=== PATIENT | male | born 1970 | race Caucasian/White ===

== ENCOUNTER 2020-01-12 19:19 | Inpatient (IN) | payer BC ==
[~2020-01-12] VITALS: Ht 177.8 cm; Wt 88.6 kg
[~2020-01-12 19:19] MED LIST: CLIN150C8 PO
[2020-01-12] MEDS ORDERED: normal saline 1000ml 1,000 ML IV ONE (19:50)
[2020-01-12] MEDS ORDERED: ketorolac tromethamine 15mg/ml inj. IV ONE (19:50)
[2020-01-12] MEDS ORDERED: ondansetron/PF 4mg/2ml inj IV ONE (19:55)
[2020-01-12 20:01] LABS: BASOPHILS # (AUTO) 0.1 X10'3 (0-0.2); BASOPHILS % (AUTO) 0.4 % (0-1); EOSINOPHILS # (AUTO) 0.1 X10'3 (0-0.9); EOSINOPHILS % (AUTO) 0.9 % (0-6); HEMOGLOBIN 15.2 g/dl (14.0-17.9); LYMPHOCYTES # (AUTO) 1.5 X10'3 (1.1-4.8); MEAN CORPUSCULAR HEMOGLOBIN 30.3 PG (27.0-31.0); MEAN CORPUSCULAR HGB CONC 33.1 g/dL (33.0-36.5); MEAN CORPUSCULAR VOLUME 91.5 FL (78-98); MEAN PLATELET VOLUME 10.6 FL (7.4-10.4); MONOCYTES % (AUTO) 7.2 % (2-12); NEUTROPHILS # (AUTO) 11.1 X10'3 (1.8-7.7); NEUTROPHILS % (AUTO) 80.5 % (42-75); PLATELET COUNT 128 X10'3 (140-440); RED BLOOD COUNT 5.02 X10'6 (4.70-6.10); RED CELL DISTRIBUTION WIDTH 13.2 % (11.5-14.5); WHITE BLOOD COUNT 13.7 X10'3 (4.5-11.0)
[2020-01-12 20:01] LABS: CLARITY,URINE CLEAR (Clear); COLOR,URINE YELLOW (Yellow); GLUCOSE, URINE NEGATIVE (Neg); KETONES,URINE NEGATIVE (Neg); LEUKOCYTE ESTERASE ,URINE NEGATIVE (Neg); NITRITES, URINE NEGATIVE (Neg); OCCULT BLOOD,URINE LARGE (Neg); PH,URINE 6.5 (4.8-8.0); PROTEIN,URINE 100 mg/dl (Neg); UROBILINOGEN,URINE 0.2 E.U/dL (0.2-1.0)
[2020-01-12 20:02] LABS: UA COLLECTION TYPE CLN CATCH MIDSTREAM
[2020-01-12 20:07] LABS: ALANINE AMINOTRANSFERASE 45 U/L (12-78); ALBUMIN 4.4 G/DL (3.4-5.0); ALBUMIN/GLOBULIN RATIO 1.4 (1.1-1.5); ALKALINE PHOSPHATASE 56 IU/L (46-116); ANION GAP 10 (8-16); ASPARTATE AMINO TRANSFERASE 31 U/L (10-37); BLOOD UREA NITROGEN 23 MG/DL (7-18); BUN/CREATININE RATIO 7.5 (5.4-32.0); CALCIUM 9.7 MG/DL (8.5-10.1); CHLORIDE 106 MMOL/L (99-107); CREATININE 3.07 MG/DL (0.60-1.10); GLUCOSE 103 MG/DL (70-104); LIPASE 271 U/L (73-393); POTASSIUM 4.2 MMOL/L (3.5-5.1); SODIUM 139 MMOL/L (135-145); TOTAL CARBON DIOXIDE 22.6 MMOL/L (24-32); TOTAL PROTEIN 7.6 G/DL (6.4-8.2); eGFR 22 ML/MIN
[2020-01-12] MEDS ORDERED: normal saline 1000ML IV soln IVB ONE (20:15)
[2020-01-12 20:20] LABS: WBC,URINE 0-4 /HPF (0-4)
[2020-01-12 20:21] LABS: BACTERIA,URINE NONE SEEN /HPF (Neg); RBC,URINE 50-100 /HPF (0-2); SQUAMOUS EPITHELIAL CELL,UR FEW /LPF (FEW)
--- NOTE | 2020-01-12 20:34 | NUR ---
UP TO BR TO VOID. REPORTS PAIN DOWN TO 5 OUT OF 10 FROM 7 WHEN FIRST GIVEN TORADOL. NAUSEA IS MINIMAL. 2ND OF 2 LITERS INFUSING. PT AMBULATING WITH STEADY GAIT. STABLE VS.
[2020-01-12] MEDS ORDERED: morphine 2 MG/ML inj. syringe IV ONE ×2 (21:05→21:10)
--- NOTE | 2020-01-12 23:01 | NUR ---
CT resulted. Pt to be admitted. Provider awaiting call back from hospitalist. Pt moved from FT4 to [facility] er bed 15. Pt able to get into independantly.
[2020-01-12] MEDS ORDERED: CefTRIAXone/D5W-Rocephin 1gm 50 ML IV ONE (23:05)
[2020-01-12] MEDS ORDERED: NO HOME MEDS (23:22)
[2020-01-13] VITALS (7 sets, daily range): BP systolic 99–145; BP diastolic 55–95
[2020-01-13] MEDS ORDERED: acetaminophen 325mg tablet PO PRN (00:10)
[2020-01-13] MEDS ORDERED: magnesium 2GM in 50ml NS 50 ML IV PRN (00:10)
[2020-01-13] MEDS ORDERED: potassium CL 10mEq/100ml bag 100 ML IV PRN ×2 (00:10)
[2020-01-13] MEDS ORDERED: HYDROmorphone 1 mg/ml syringe IV PRN (00:10)
[2020-01-13] MEDS ORDERED: magnesium Cl slow-release 64mg tablet PO PRN (00:10)
[2020-01-13] MEDS ORDERED: HYDROcodone/acetaminophen 5mg/325mg tablet PO PRN (00:10)
[2020-01-13] MEDS ORDERED: potassium Cl 20 mEq SR tablet PO PRN ×2 (00:10)
[2020-01-13] MEDS ORDERED: ondansetron/PF 4mg/2ml inj IV PRN (00:10)
[2020-01-13] MEDS ORDERED: magnesium hydroxide 30ml (MOM) UD suspension PO PRN (00:10)
[2020-01-13] MEDS ORDERED: magnesium 4gm in 100ml NS 100 ML IV PRN (00:10)
[2020-01-13] MEDS ORDERED: mag hydrox/Alum hydrox/simeth 30ml oral suspension PO PRN (00:10)
[2020-01-13] MEDS ORDERED: Melatonin 3mg tablet PO STA (00:42)
--- NOTE | 2020-01-13 00:43 | NUR ---
pt requested something to help him sleep and adtl pain meds. antony smith aware and will order adtl meds.
[2020-01-13] MEDS ORDERED: diphenhydrAMINE 25mg capsule PO ONE (00:45)
[2020-01-13] MEDS ORDERED: HYDROcodone/acetaminophen 5mg/325mg tablet PO ONE (00:45)
[2020-01-13] MEDS: normal saline 1000ml 1,000 ML IV SCH ×3 (00:56→19:39)
[2020-01-13] MEDS: HYDROcodone/acetaminophen 5mg/325mg tablet PO PRN ×2 (00:57→12:41)
--- NOTE | 2020-01-13 01:10 | NUR ---
Patient in room [facility] 351. I have received report from KARIS Galindo and had the opportunity to ask questions and assume patient care.
--- NOTE | 2020-01-13 01:25 | NUR ---
Pt arrived to floor via . Walked from to bathroom without assistance. Voided and returned to bed. Skin check and assessment completed, VSS. Pt received a sleeping pill in ER and is ready to go to sleep. No pain at this time.
--- NOTE | 2020-01-13 06:18 | NUR ---
Problems reprioritized. Patient report given, questions answered & plan of care reviewed with KARIS Steward.
--- NOTE | 2020-01-13 06:29 | NUR ---
Patient in room [facility]EC[facility] 351. I have received report from Racheal Dennis RN and had the opportunity to ask questions and assume patient care.
[2020-01-13] MEDS ORDERED: morphine 2 MG/ML inj. syringe IV PRN (07:05)
--- NOTE | 2020-01-13 07:19 | NUR ---
Received report from KARIS Magdaleno from med/surg. Awaiting patient arrival to room 3022.
--- NOTE | 2020-01-13 07:23 | NUR ---
Report given to Ana DYSON at [facility]
--- NOTE | 2020-01-13 07:40 | NUR ---
Patient arrived to room 3022 via hospital bed, and patient ambulated from hospital bed to new bed in room 3022. Patient vitals are temp 97.8F, BP 135/79, HR 65, RR 12, 97% on room air, and pain 4/10 on his right flank but no chest tightness, normal saline running at 100mL/hr. Bed locked and lowered, call light in reach, frequent rounding, and nonskid socks on.
--- NOTE | 2020-01-13 07:44 | NUR ---
Patient transferred to PCU room 3022 with his belongings
[2020-01-13] MEDS: K and/or MAG REPLACEMENT MC SCH ×2 (08:00→20:00)
[2020-01-13] MEDS: docusate sod 100mg capsule PO SCH ×2 (08:48→19:39)
--- NOTE | 2020-01-13 09:52 | NUR ---
Administered normal saline, bag wouldn't scan.
--- NOTE | 2020-01-13 10:20 | NUR ---
Orders put in for Rocephin 1g IV daily to start now per Dr. Liu.
[2020-01-13] MEDS ORDERED: nitroGLYCERIN 0.4mg SUBLingual tab SL PRN (10:35)
[2020-01-13] MEDS ORDERED: aminophylline 250mg/10ml inj. IV PRN (10:35)
[2020-01-13] MEDS ORDERED: metoprolol tartrate 1mg/ml inj IV PRN (10:35)
[2020-01-13 10:46] LABS: ALBUMIN 3.2 G/DL (3.4-5.0); ANION GAP 9 (8-16); BLOOD UREA NITROGEN 24 MG/DL (7-18); BUN/CREATININE RATIO 8.7 (5.4-32.0); CALCIUM 8.2 MG/DL (8.5-10.1); CHLORIDE 110 MMOL/L (99-107); CREATININE 2.75 MG/DL (0.60-1.10); GLUCOSE 127 MG/DL (70-104); POTASSIUM 3.8 MMOL/L (3.5-5.1); SODIUM 140 MMOL/L (135-145); eGFR 25 ML/MIN
[2020-01-13] MEDS: CefTRIAXone/D5W-Rocephin 1gm 50 ML IV SCH (12:18)
--- NOTE | 2020-01-13 18:12 | NUR ---
Problems reprioritized. Patient report given, questions answered & plan of care reviewed with KARIS Salcedo. Patient stable at transfer of care.
[2020-01-14] VITALS (14 sets, daily range): BP systolic 117–144; BP diastolic 73–90
--- NOTE | 2020-01-14 01:55 | NUR ---
PAGER ID: [phone] MESSAGE: [phone] pt Grupo said that he thinks the pain he had earlier might actually be his lungs because it hurts when he breathes in. No chest imaging ordered. Please advise - thanks
[2020-01-14] MEDS ORDERED: regadenoson 0.4mg/5ml syringe IV PRN (05:30)
[2020-01-14 05:53] LABS: BASOPHILS % (AUTO) 0.3 % (0-1); EOSINOPHILS # (AUTO) 0.1 X10'3 (0-0.9); EOSINOPHILS % (AUTO) 1.7 % (0-6); HEMATOCRIT 41.3 % (42.0-52.0); HEMOGLOBIN 13.9 g/dl (14.0-17.9); MEAN CORPUSCULAR HEMOGLOBIN 30.8 PG (27.0-31.0); MEAN CORPUSCULAR HGB CONC 33.6 g/dL (33.0-36.5); MEAN CORPUSCULAR VOLUME 91.8 FL (78-98); MEAN PLATELET VOLUME 10.8 FL (7.4-10.4); MONOCYTES # (AUTO) 0.5 X10'3 (0-0.9); MONOCYTES % (AUTO) 5.9 % (2-12); NEUTROPHILS # (AUTO) 5.7 X10'3 (1.8-7.7); NEUTROPHILS % (AUTO) 68.1 % (42-75); PLATELET COUNT 115 X10'3 (140-440); RED CELL DISTRIBUTION WIDTH 12.8 % (11.5-14.5); WHITE BLOOD COUNT 8.4 X10'3 (4.5-11.0)
[2020-01-14] MEDS: normal saline 1000ml 1,000 ML IV SCH ×2 (06:10→16:10)
[2020-01-14 06:14] LABS: ALANINE AMINOTRANSFERASE 32 U/L (12-78); ALBUMIN 3.4 G/DL (3.4-5.0); ALBUMIN/GLOBULIN RATIO 1.2 (1.1-1.5); ALKALINE PHOSPHATASE 39 IU/L (46-116); ANION GAP 10 (8-16); ASPARTATE AMINO TRANSFERASE 19 U/L (10-37); BILIRUBIN,TOTAL 0.9 MG/DL (0.1-1.0); BLOOD UREA NITROGEN 24 MG/DL (7-18); BUN/CREATININE RATIO 12.8 (5.4-32.0); CALCIUM 8.5 MG/DL (8.5-10.1); CHLORIDE 109 MMOL/L (99-107); CREATININE 1.88 MG/DL (0.60-1.10); GLUCOSE 103 MG/DL (70-104); MAGNESIUM 1.9 MG/DL (1.5-2.4); POTASSIUM 4.3 MMOL/L (3.5-5.1); SODIUM 140 MMOL/L (135-145); TOTAL CARBON DIOXIDE 21.4 MMOL/L (24-32); TOTAL PROTEIN 6.2 G/DL (6.4-8.2); eGFR 38 ML/MIN
--- NOTE | 2020-01-14 06:21 | NUR ---
Patient in room PCU 3022. I have received report from KARIS Salcedo and had the opportunity to ask questions and assume patient care. Patient awake in bed and in no acute distress.
--- NOTE | 2020-01-14 06:30 | NUR ---
Problems reprioritized. Patient report given, questions answered & plan of care reviewed with KARIS Perez.
--- NOTE | 2020-01-14 07:14 | NUR ---
Administered normal saline, bag wouldn't scan.
[2020-01-14] MEDS: K and/or MAG REPLACEMENT MC SCH ×2 (08:00→19:18)
[2020-01-14] MEDS: CefTRIAXone/D5W-Rocephin 1gm 50 ML IV SCH (08:06)
[2020-01-14] MEDS: docusate sod 100mg capsule PO SCH ×2 (08:06→19:04)
--- NOTE | 2020-01-14 09:23 | NUR ---
Patient going down to nuclear medicine.
--- NOTE | 2020-01-14 11:36 | NUR ---
Patient back from nuclear medicine.
--- NOTE | 2020-01-14 11:42 | NUR ---
Paged x-ray to let them know that the patient is ready for their x-ray.
--- NOTE | 2020-01-14 11:48 | NUR ---
Patient left for x-ray.
--- NOTE | 2020-01-14 11:53 | NUR ---
Patient back from x-ray.
--- NOTE | 2020-01-14 12:47 | NUR ---
Paged Dr. Liu regarding patient's x-ray and lexiscan have resulted. PAGER ID: [phone] MESSAGE: [phone]. Dayne Lombardo. Patient's lexiscan and x-ray have resulted. Thank you. Ana DYSON x [phone]
--- NOTE | 2020-01-14 18:07 | NUR ---
Problems reprioritized. Patient report given, questions answered & plan of care reviewed with KARIS Moreira. Patient stable at transfer of care.
--- NOTE | 2020-01-14 18:21 | NUR ---
Patient in room PCU 3022. I have received report from Ana DYSON and had the opportunity to ask questions and assume patient care.
[2020-01-14] MEDS: lactobacillus rhamnosus 10,000 MMU CELLS/CAPSULE PO SCH (19:03)
--- NOTE | 2020-01-14 19:18 | NUR ---
PAGER ID: [phone] MESSAGE: Dayne Lombardo [phone]: Patient is on NS @ 100/hr. He is tolerating PO fluids. Patient is requesting to have NS DCd. -Lillie DYSON [phone]
[2020-01-15 02:00] VITALS: BP 134/68
[2020-01-15 05:40] LABS: BASOPHILS % (AUTO) 0.5 % (0-1); EOSINOPHILS # (AUTO) 0.2 X10'3 (0-0.9); EOSINOPHILS % (AUTO) 2.4 % (0-6); HEMATOCRIT 40.9 % (42.0-52.0); LYMPHOCYTES % (AUTO) 29.2 % (21-51); MEAN CORPUSCULAR HEMOGLOBIN 31.1 PG (27.0-31.0); MEAN CORPUSCULAR HGB CONC 34.2 g/dL (33.0-36.5); MEAN CORPUSCULAR VOLUME 90.9 FL (78-98); MEAN PLATELET VOLUME 11.4 FL (7.4-10.4); MONOCYTES # (AUTO) 0.4 X10'3 (0-0.9); MONOCYTES % (AUTO) 6.4 % (2-12); NEUTROPHILS # (AUTO) 4.3 X10'3 (1.8-7.7); NEUTROPHILS % (AUTO) 61.5 % (42-75); PLATELET COUNT 123 X10'3 (140-440); RED CELL DISTRIBUTION WIDTH 12.9 % (11.5-14.5)
[2020-01-15 05:51] LABS: ALANINE AMINOTRANSFERASE 30 U/L (12-78); ALBUMIN 3.4 G/DL (3.4-5.0); ALBUMIN/GLOBULIN RATIO 1.1 (1.1-1.5); ALKALINE PHOSPHATASE 40 IU/L (46-116); ANION GAP 8 (8-16); ASPARTATE AMINO TRANSFERASE 17 U/L (10-37); BILIRUBIN,TOTAL 0.9 MG/DL (0.1-1.0); BLOOD UREA NITROGEN 18 MG/DL (7-18); BUN/CREATININE RATIO 11.5 (5.4-32.0); CALCIUM 8.6 MG/DL (8.5-10.1); CHLORIDE 109 MMOL/L (99-107); CREATININE 1.56 MG/DL (0.60-1.10); GLUCOSE 115 MG/DL (70-104); MAGNESIUM 1.7 MG/DL (1.5-2.4); POTASSIUM 4.1 MMOL/L (3.5-5.1); SODIUM 142 MMOL/L (135-145); TOTAL CARBON DIOXIDE 25.1 MMOL/L (24-32); TOTAL PROTEIN 6.4 G/DL (6.4-8.2); eGFR 48 ML/MIN
--- NOTE | 2020-01-15 06:06 | NUR ---
Problems reprioritized. Patient report given, questions answered & plan of care reviewed with Ana DYSON.
--- NOTE | 2020-01-15 06:26 | NUR ---
Patient in room PCU 3022. I have received report from KARIS Moreira and had the opportunity to ask questions and assume patient care. Patient asleep in bed and in no acute distress.
[2020-01-15 06:48] LABS: LARGE PLATELETS FEW; PLATELET ESTIMATE NORMAL
[2020-01-15 07:00] VITALS: BP 133/77
[2020-01-15] MEDS: K and/or MAG REPLACEMENT MC SCH (08:00)
[2020-01-15] MEDS: docusate sod 100mg capsule PO SCH (08:00)
[2020-01-15] MEDS: CefTRIAXone/D5W-Rocephin 1gm 50 ML IV SCH (08:26)
[2020-01-15] MEDS: lactobacillus rhamnosus 10,000 MMU CELLS/CAPSULE PO SCH (08:27)
--- NOTE | 2020-01-15 10:50 | NUR ---
Patient stable for discharge per MD orders. All discharge instructions reviewed and all questions answered appropriately. Belongings collected and sent with patient. No new prescriptions were prescribed. Patient will call and make follow up appointment with his PCP when he gets home today. PIV discontinued and cannula intact. hall monitor discontinued. Patient wheeled down to lobby and left via private vehicle.
== END 2020-01-15 11:11 | disposition home or self-care (01) | DRG 640 ==
LOC: ER 19:19 → ED HOLD 01-13 00:10 → SUR 3N 01-13 01:25 → PCU 3S 01-13 07:40
PROVIDERS: ADMIT Family Medicine; ATTEND Internal Medicine
DX: E86.0 Dehydration (principal); N17.0 Acute kidney failure with tubular necrosis; N12 Tubulo-interstitial nephritis, not specified as acute or chronic; Z87.891 Personal history of nicotine dependence; Z87.442 Personal history of urinary calculi
CPT/HCPCS: 36415; 71046; 74176; 78452; 80048; 80053; 81001; 83605; 83690; 83735; 83880; 84145; 84484; 85025; 87081; 93005; 93017; 99285; A9500; G0378; J0696; J1885; J2270; J2405; J2785; J7030

== ENCOUNTER 2020-02-29 08:24 | Outpatient (CLI) | payer BC ==
[~2020-02-29 08:24] MED LIST changes: -CLIN150C8 PO; +NO HOME MEDS
[2020-02-29 08:59] LABS: BASOPHILS % (AUTO) 0.5 % (0-1); CLARITY,URINE CLEAR (Clear); COLOR,URINE YELLOW (Yellow); EOSINOPHILS # (AUTO) 0.2 X10'3 (0-0.9); EOSINOPHILS % (AUTO) 2.9 % (0-6); GLUCOSE, URINE NEGATIVE (Neg); HEMATOCRIT 46.9 % (42.0-52.0); HEMOGLOBIN 15.9 g/dl (14.0-17.9); KETONES,URINE NEGATIVE (Neg); LEUKOCYTE ESTERASE ,URINE NEGATIVE (Neg); LYMPHOCYTES # (AUTO) 1.9 X10'3 (1.1-4.8); LYMPHOCYTES % (AUTO) 27.9 % (21-51); MEAN CORPUSCULAR HEMOGLOBIN 30.9 PG (27.0-31.0); MEAN CORPUSCULAR HGB CONC 33.9 g/dL (33.0-36.5); MEAN CORPUSCULAR VOLUME 91.2 FL (78-98); MEAN PLATELET VOLUME 10.6 FL (7.4-10.4); MONOCYTES # (AUTO) 0.3 X10'3 (0-0.9); MONOCYTES % (AUTO) 5.1 % (2-12); NEUTROPHILS # (AUTO) 4.3 X10'3 (1.8-7.7); NEUTROPHILS % (AUTO) 63.6 % (42-75); NITRITES, URINE NEGATIVE (Neg); OCCULT BLOOD,URINE NEGATIVE (Neg); PH,URINE 5.5 (4.8-8.0); PLATELET COUNT 137 X10'3 (140-440); PROTEIN,URINE NEGATIVE (Neg); RED BLOOD COUNT 5.14 X10'6 (4.70-6.10); RED CELL DISTRIBUTION WIDTH 12.9 % (11.5-14.5); UROBILINOGEN,URINE 0.2 E.U/dL (0.2-1.0); WHITE BLOOD COUNT 6.7 X10'3 (4.5-11.0)
[2020-02-29 09:01] LABS: UA COLLECTION TYPE CLN CATCH MIDSTREAM
[2020-02-29 09:22] LABS: ALANINE AMINOTRANSFERASE 33 U/L (12-78); ALBUMIN 4.1 G/DL (3.4-5.0); ALBUMIN/GLOBULIN RATIO 1.2 (1.1-1.5); ALKALINE PHOSPHATASE 53 IU/L (46-116); ANION GAP 8 (8-16); ASPARTATE AMINO TRANSFERASE 20 U/L (10-37); BILIRUBIN,TOTAL 0.7 MG/DL (0.1-1.0); BLOOD UREA NITROGEN 14 MG/DL (7-18); CHLORIDE 107 MMOL/L (99-107); CHOL/HDL RATIO 5.4 (0.00-4.99); CHOLESTEROL 200 MG/DL (0-200); CREATININE 1.08 MG/DL (0.60-1.10); GLUCOSE 101 MG/DL (70-104); HDL CHOLESTEROL 37 MG/DL (35-60); LDL CHOLESTEROL 134 MG/DL (50-100); POTASSIUM 4.8 MMOL/L (3.5-5.1); SODIUM 140 MMOL/L (135-145); TOTAL CARBON DIOXIDE 25.3 MMOL/L (24-32); TOTAL PROTEIN 7.6 G/DL (6.4-8.2); TRIGLYCERIDES 108 MG/DL (20-135); eGFR 73 ML/MIN
[2020-02-29 09:35] LABS: LARGE PLATELETS FEW; PLATELET ESTIMATE DECREASED
[2020-03-01 15:43] LABS: PSA, FREE 0.52 ng/mL
== END 2020-02-29 23:59 | disposition home or self-care (01) ==
LOC: LAB 08:24
PROVIDERS: ATTEND Family Medicine
DX: R39.9 Unspecified symptoms and signs involving the genitourinary system (principal); N40.0 Benign prostatic hyperplasia without lower urinary tract symptoms; E86.0 Dehydration; Z87.39 Personal history of other diseases of the musculoskeletal system and connective tissue
CPT/HCPCS: 36415; 80053; 80061; 81003; 84153; 84154; 84439; 84443; 84550; 85008; 85025

== ENCOUNTER 2020-11-11 09:42 | Emergency (ER) | payer BC ==
[~2020-11-11] VITALS: Ht 180.3 cm; Wt 86.4 kg
[2020-11-11] MEDS ORDERED: normal saline 1000ML IV soln IVB ONE (09:50)
[2020-11-11] MEDS ORDERED: ondansetron/PF 4mg/2ml inj IV ONE (09:50)
[2020-11-11] MEDS ORDERED: ketorolac trometh. 30mg/ml inj. IV ONE (09:50)
[2020-11-11 10:40] LABS: BASOPHILS % (AUTO) 0.4 % (0-1); EOSINOPHILS # (AUTO) 0.1 X10'3 (0-0.9); EOSINOPHILS % (AUTO) 2.6 % (0-6); HEMATOCRIT 46.2 % (42.0-52.0); HEMOGLOBIN 15.5 g/dl (14.0-17.9); LYMPHOCYTES # (AUTO) 1.1 X10'3 (1.1-4.8); LYMPHOCYTES % (AUTO) 27.3 % (21-51); MEAN CORPUSCULAR HGB CONC 33.5 g/dL (33.0-36.5); MEAN CORPUSCULAR VOLUME 92.4 FL (78-98); MEAN PLATELET VOLUME 10.9 FL (7.4-10.4); MONOCYTES # (AUTO) 0.3 X10'3 (0-0.9); MONOCYTES % (AUTO) 6.5 % (2-12); NEUTROPHILS # (AUTO) 2.6 X10'3 (1.8-7.7); NEUTROPHILS % (AUTO) 63.2 % (42-75); PLATELET COUNT 101 X10'3 (140-440); RED CELL DISTRIBUTION WIDTH 12.9 % (11.5-14.5); WHITE BLOOD COUNT 4.2 X10'3 (4.5-11.0)
[2020-11-11 10:53] LABS: CLARITY,URINE CLEAR (Clear); COLOR,URINE YELLOW (Yellow); GLUCOSE, URINE NEGATIVE (Neg); KETONES,URINE NEGATIVE (Neg); LEUKOCYTE ESTERASE ,URINE NEGATIVE (Neg); NITRITES, URINE NEGATIVE (Neg); OCCULT BLOOD,URINE NEGATIVE (Neg); PH,URINE 5.5 (4.8-8.0); PROTEIN,URINE NEGATIVE (Neg); UROBILINOGEN,URINE 0.2 E.U/dL (0.2-1.0)
[2020-11-11 11:01] LABS: ALANINE AMINOTRANSFERASE 28 U/L (12-78); ALBUMIN 3.8 G/DL (3.4-5.0); ALBUMIN/GLOBULIN RATIO 1.2 (1.1-1.5); ALKALINE PHOSPHATASE 62 IU/L (46-116); ANION GAP 12 (8-16); ASPARTATE AMINO TRANSFERASE 20 U/L (10-37); BILIRUBIN,TOTAL 0.6 MG/DL (0.1-1.0); BLOOD UREA NITROGEN 17 MG/DL (7-18); BUN/CREATININE RATIO 13.3 (5.4-32.0); CALCIUM 8.4 MG/DL (8.5-10.1); CHLORIDE 107 MMOL/L (99-107); CREATININE 1.28 MG/DL (0.60-1.10); GLUCOSE 161 MG/DL (70-104); LIPASE 240 U/L (73-393); POTASSIUM 3.8 MMOL/L (3.5-5.1); SODIUM 141 MMOL/L (135-145); TOTAL CARBON DIOXIDE 22.3 MMOL/L (24-32); TOTAL PROTEIN 7.1 G/DL (6.4-8.2); eGFR 60 ML/MIN
[2020-11-11 11:06] LABS: UA COLLECTION TYPE VOIDED
[2020-11-11 11:18] LABS: LARGE PLATELETS FEW; PLATELET ESTIMATE DECREASED
[2020-11-11 12:11] VITALS: BP 136/94
== END 2020-11-11 12:13 | disposition home or self-care (01) ==
LOC: ER 09:42
DX: U07.1 COVID-19 (principal); Z87.448 Personal history of other diseases of urinary system
CPT/HCPCS: 36415; 74176; 80053; 81003; 83690; 85008; 85025; 87635; 96361; 96374; 96375; 99284; C9803; J1885; J2405; J7030

== ENCOUNTER 2024-04-17 04:07 | Emergency (ER) | payer BC ==
[~2024-04-17] VITALS: Ht 177.8 cm; Wt 92.4 kg
[2024-04-17 04:16] VITALS: BP 167/108; PULSE 88; RESP 18; TEMP 98; O2SAT 99
[2024-04-17] MEDS ORDERED: DOXY-1 PO (04:42)
[2024-04-17] MEDS: rifampin 300mg capsule PO STA (05:18)
[2024-04-17] MEDS: fluconazole 100mg tablet PO ONE (05:18)
[2024-04-17] MEDS: DOXYCYCLINE 100MG CAPSULE PO STA (05:18)
[2024-04-17] MEDS ORDERED: TETanus/Pertussis (Acell)/Diphther VAC/PF (Tdap-Adult) 0.5ml syringe IMVAC ONE (05:55)
[2024-04-17] MEDS ORDERED: [UNRECOGNIZED DRUG - CODE] IM (05:57)
== END 2024-04-17 05:26 | disposition home or self-care (01) ==
LOC: ER 04:07
DX: L03.113 Cellulitis of right upper limb (principal); Z79.2 Long term (current) use of antibiotics; Z87.440 Personal history of urinary (tract) infections
CPT/HCPCS: 10060; 99284